=== PATIENT | female | born 1940 | race Caucasian/White ===

== ENCOUNTER → 2021-01-28 | Outpatient (CLI) | payer MEDICARE ==
[~2021-01-28] MED LIST: CEFT1INJ39 IV; CITRTAB15 PO; LOVE1INJ SC; NSIRR1000 IV; TYLE325T5 PO
--- NOTE | 2021-01-28 11:42 | REP ---
INDICATION: PAIN. 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 More moderate degenerative changes are seen throughout the foot. This has also increased from the prior exam. 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 There is no evidence of an acute fracture. IMPRESSION: Chronic changes <Electronically signed by Maxime Moya > 01/28/21 [id number]
== END ==
LOC: M WUC 10:44
PROVIDERS: ATTEND Nurse Practitioner Family
DX: M79.671 Pain in right foot (principal); M19.071 Primary osteoarthritis, right ankle and foot